=== PATIENT | female | born 1970 | race Caucasian/White ===

== ENCOUNTER 2018-12-22 06:46 | Day surgery (SDC) | payer BC ==
[~2018-12-22 06:46] MED LIST: Lidocaine 1% with EPINEPHrine 1:100,000 50 ML MDV ONE; Sodium Chloride 0.9% 10 ML ONE; Sodium Tetradecyl Sulfate 1% 20 MG/2 ML SDV ONE
[2018-12-22] MEDS ORDERED: Sodium Chloride 0.9% 1,000 ML IV SCH (07:00)
[2018-12-22] MEDS ORDERED: fentaNYL 100 MCG/2 ML SDV ONE (07:23)
[2018-12-22] MEDS ORDERED: Propofol 200 MG/20 ML SDV ONE ×3 (07:24→08:24)
[2018-12-22] MEDS ORDERED: Midazolam 1 MG/ML 2 ML SDV ONE (07:24)
[2018-12-22] MEDS ORDERED: Lidocaine 1% w/EPINEPHrine 50 ML, Sodium Bicarbonate 5 MEQ in Sodium Chloride 0.9% 950 ML INJECT ONE ×2 (07:30→07:45)
[2018-12-22] MEDS ORDERED: Sodium Chloride 0.9% 10 ML SDV FLUSH ONE (08:20)
--- NOTE | 2018-12-22 10:49 | OR ---
DATE OF PROCEDURE: 12/22/2018 SURGEON: Oneal Rodríguez MD PROCEDURES: 1. Radiofrequency ablation of left greater saphenous vein. 2. Sclerotherapy, left leg, multiple. 3. Compression wrap, left leg ([id number]). COMPLICATIONS: None. LITHOPLATE MAKER: None. ANESTHESIA: MAC. PREOPERATIVE DIAGNOSIS: Venous/varicose vein insufficiency with inflammation and pain. POSTOPERATIVE DIAGNOSIS: Venous/varicose vein insufficiency with inflammation and pain. RISKS: Risks, benefits, alternatives, and limitations including, but not limited to infection, bleeding, and DVT formation were explained to the patient and wished to proceed. PROCEDURE IN DETAIL: The patient was placed in supine position. The original objective was to ablate the right greater saphenous, right lesser. Unfortunately, due to tortuosity, an attempt to then advance with wire was unable to be successful. Therefore, these were not ablated here. The left GSV was accessed at the level of the ankle. This was accessed using a 21-gauge needle and then exchanged for a 35,000th wire, then exchanged for a 7-Mauritian sheath. The RFA probe was able to be advanced to upper thigh. Tumescent fluid was injected in a 1-cm jacket around this and verified a second and a third time. Sheath and device were then removed after deploying x2 proximally and distally, and x1 in all other segments. Direct pressure was held for 10 minutes. Dermabond was applied. Sclerotherapy was then performed of the left leg. There were 6 on the left. This was always drawn back to ensure intravascular injection only and no more than 2 mL was injected in one location. Once this was completed, two-layer two-stage compression wrapping was then performed in a distal to proximal 20 mm grade using a [id number] pattern. The patient tolerated the procedure well. Oenal Rodríguez MD /[id number]
== END 2018-12-22 10:35 | disposition home or self-care (01) ==
LOC: JP.SDS 06:46
PROVIDERS: ATTEND Surgery
DX: I83.12 Varicose veins of left lower extremity with inflammation (principal); I83.812 Varicose veins of left lower extremity with pain; E03.9 Hypothyroidism, unspecified; E05.90 Thyrotoxicosis, unspecified without thyrotoxic crisis or storm
CPT/HCPCS: 36471; 36475; J1642; J2250; J2704; J3010; J7030; J3490

== ENCOUNTER 2019-10-13 09:57 | Day surgery (SDC) | payer BC ==
[~2019-10-13 09:57] MED LIST changes: +Dexamethasone 4 MG/ML SDV ONE; +Glycopyrrolate 0.2 MG/ML 5 ML MDV ONE; -Lidocaine 1% with EPINEPHrine 1:100,000 50 ML MDV ONE; +Neostigmine Methylsulfate 1 MG/ML 5 ML Syringe ONE; +Ondansetron 4 MG/2 ML SDV ONE; +Propofol 200 MG/20 ML SDV ONE; +Rocuronium 50 MG/5 ML Vial ONE; -Sodium Chloride 0.9% 10 ML ONE; -Sodium Tetradecyl Sulfate 1% 20 MG/2 ML SDV ONE; +Succinylcholine 200 MG/10 ML MDV ONE; +fentaNYL 250 MCG/5 ML SDV ONE
[2019-10-13] MEDS ORDERED: Sodium Chloride 0.9% 1,000 ML IV SCH (10:30)
[2019-10-13] MEDS ORDERED: metroNIDAZOLE/Normal Saline 500 MG in Premix Bag 1 BAG IV ONE (10:30)
[2019-10-13] MEDS ORDERED: ceFAZolin 2 GM in Premix Bag 1 BAG IV ONE (10:30)
[2019-10-13] MEDS: Bupivacaine 0.5% 50 ML MDV ONE ×2 (10:38→12:38)
[2019-10-13] MEDS: Lidocaine 1% with EPINEPHrine 1:100,000 50 ML MDV ONE ×2 (10:39→12:38)
[2019-10-13] MEDS ORDERED: Lactated Ringers 1,000 ML ONE (12:31)
[2019-10-13] MEDS ORDERED: Ketorolac 60 MG/2 ML SDV ONE (12:34)
[2019-10-13] MEDS ORDERED: Morphine 2 MG/ML Syringe IVPUSH PRN (13:53)
[2019-10-13] MEDS ORDERED: Scopolamine 1.5 MG Transdermal Patch TRDERM ONE (14:00)
[2019-10-13] MEDS ORDERED: Acetaminophen/HYDROcodone 325-5 MG Tab PO PRN (14:30)
--- NOTE | 2019-10-16 08:58 | OR ---
DATE OF PROCEDURE: 10/13/2019 SURGEON: Oneal Rodríguez MD PROCEDURE: Transversus abdominis plane block, bilaterally. COMPLICATION: None. OIL BOILER: None. RISKS: Risks, benefits, alternatives, and limitations including, but not limited to infection, bleeding, and injury to abdominal structures were all explained to the patient, who wished to proceed. PROCEDURE IN DETAIL: The patient was placed in supine position. The right transversus plane was identified first. 80% of the solution was injected directly into the transversus plane. The left side was then approached in a same manner, same fashion, same technique all under 13 megahertz ultrasound-guided injection. The only difference was different needle and syringe were used on the second side. The patient tolerated the procedure well. Oneal Rodríguez MD /[id number]
--- NOTE | 2019-10-16 09:25 | OR ---
DATE OF PROCEDURE: 10/13/2019 SURGEON: Oneal Rodríguez MD PROCEDURES: 1. Component separation surgery, Pfannenstiel hernia (33765). 2. Repair of incisional hernia repair with mesh ([id number]), recurrent, incarcerated. 3. Repair of recurrent incisional hernia, reducible (56787), hernia #2. INDICATION: A pleasant 49-year-old female who had multiple recurrent incisional hernias noted on the abdomen. PREOPERATIVE DIAGNOSES: 1. Incarcerated non-strangulated hernia. 2. Recurrent incarcerated hernia #2. POSTOPERATIVE DIAGNOSES: 1. Incarcerated non-strangulated hernia. 2. Recurrent incarcerated hernia #2. COMPLICATION: None. ASSOCIATE ARTISTIC DIRECTOR: None. ANESTHESIA: General/local. RISKS: Risks, benefits, alternatives, and limitations including, but not limited to infection, bleeding, seroma, hematoma, requirement for reoperation, hernia failure, injury to abdominal structures such as bowel or bladder, sepsis, and other risks not listed here were explained to the patient, and they wished to proceed. PROCEDURE IN DETAIL: The patient was placed in supine position. The previous Pfannenstiel incision was opened with a 15 blade carefully and was mobilized proximally, the entire length, which was around 10 cm. Using electrocautery, the hernia sac was readily identified and was mobilized freely. The hernia sac was entered sharply, and it was noted to contain small bowel incarcerated within this. There was no evidence of strangulation. The hernia sac was then mobilized and subsequently removed. This was not sent to pathology. It became evident the patient actually had a second hernia in close proximity to this. Therefore, at this point was the time when the entire incision was opened completely. Both were noted to be incarcerated, both recurrent, and the more lateral of the two had already been repaired previously. At this point, the more lateral one will be repaired with an anterior component separation and the second one will be repaired in conjunction with this with a second piece of mesh. Mobilization of the sacs continued using electrocautery. Of note, at no time during the procedure would the bowel be interacted with, as far as cautery injury or any other abnormality, and this was deflected inferiorly. The anterior components of the fascia were then released around the hernia edges and further mobilized with respect to the rectus sheath. Perforating vessels and nerves were identified during this procedure and not interacted with in any way. This continued to be mobilized until there was a tension-free ability to close the hernia properly. This was then closed with #1 Prolene suture in an interrupted fashion. Mesh was then used to close the second hernia due to the inability to completely make this a tensionless repair without this aspect due to the second hernia. The medial hernia would be described as approximately 5 cm and the lateral hernia was approximately 6 cm. Of note, this is with respect to a Pfannenstiel incision, not a midline incision. Once the posterior component was closed and , the mesh was introduced into the second hernia. This would be sutured with Prolene in a horizontal mattress type approach, penetrating the fascial muscular layer through the mesh and then back. This was all performed extracorporeally to prevent inadvertent injury to the small bowel. This was then placed in the abdomen and sutured. Of note, this mesh was hand sutured approximately every 1 to 1.5 cm. Using tacking device, as this was a multi-material mesh, the anterior component of the mesh was then tacked with multiple tacking sutures. To continue with component separation, a Vicryl type suture would then be tacked over both the repair and the subsequent mesh. This was tacked into the muscular layer approximately every 1 to 2 cm. The entire thing was completely irrigated. The skin and subcutaneous tissues were then closed in 3 layers using #1 and 3-0 Vicryl suture. Friendship were then applied to close the skin. The patient tolerated the procedure well. Oneal Rodríguez MD /[id number]
== END 2019-10-13 15:29 | disposition home or self-care (01) ==
LOC: JP.SDS 09:57
PROVIDERS: ATTEND Surgery
DX: K43.0 Incisional hernia with obstruction, without gangrene (principal); K21.9 Gastro-esophageal reflux disease without esophagitis; E66.9 Obesity, unspecified; E03.9 Hypothyroidism, unspecified; E66.01 Morbid (severe) obesity due to excess calories; E05.90 Thyrotoxicosis, unspecified without thyrotoxic crisis or storm; Z68.41 Body mass index [BMI] 40.0-44.9, adult; Z79.890 Hormone replacement therapy; Z79.899 Other long term (current) drug therapy
CPT/HCPCS: 15734; 49565; 49566; 49568; 81025; A9270; C1713; C1781; J0171; J0690; J1100; J1885; J2270; J2405; J2704; J2710; J2795; J3010; J3490; J7030; J7050; J7120; J0330

== ENCOUNTER 2019-10-13 20:58 | Emergency (ER) | payer BC ==
--- NOTE | 2019-10-13 22:04 | EDM.PDOC ---
ED HPI GENERAL MEDICAL PROBLEM - General Chief Complaint: Wound Recheck Stated Complaint: BLEEDING FROM HERNIA SURGERY THIS AM Time Seen by Provider: 10/13/19 21:00 Source of Information: Reports: Patient History Limitations: Reports: No Limitations - History of Present Illness INITIAL COMMENTS - FREE TEXT/NARRATIVE: Incisional hernia repair today by Dr Rodríguez, now having bloody drainage on bandage. No other symptoms. Onset: Today Duration: Hour(s): Location: Reports: Abdomen incisional Pain Score (Numeric/FACES): 3 - Related Data Allergies Allergy/AdvReac Type Severity Reaction Status Date / Time No Known Allergies Allergy Verified 10/13/19 21:21 Home Meds: Home Meds Calcium Carbonate [Calcium] 2,000 mg PO DAILY 07/05/17 [History] Cholecalciferol (Vitamin D3) [Vitamin D3] 2,000 units PO DAILY 07/05/17 [History ] Cyanocobalamin/FA/Pyridoxine [B Complex-Folic Acid] 1 tab PO DAILY 07/05/17 [ History] Cyanocobalamin/Folic Acid [Vitamin H16-Stdxc Acid] 1 tab PO DAILY 07/05/17 [ History] Ferrous Fumarate 324 mg PO DAILY 07/05/17 [History] Levothyroxine 200 mcg PO DAILY 07/05/17 [History] Multivitamin [Multivitamins] 1 cap PO BID 07/05/17 [History] Omeprazole 40 mg PO BEDTIME PRN 03/14/18 [History] Aspirin 81 mg PO DAILY 10/13/19 [History] Hydrocodone/Acetaminophen [Hydrocodon-Acetaminophen 5-325] 1 each PO TID PRN 09/26 [History] Past Medical History HEENT History: Reports: Impaired Vision Other HEENT History: wears glasses Cardiovascular History: Reports: Arrhythmia Gastrointestinal History: Reports: Cholelithiasis Genitourinary History: Reports: None CARD LACER JACQUARD History: Reports: , Spontaneous Musculoskeletal History: Reports: Osteoarthritis, Other (See Below) Other Musculoskeletal History: L shoulder pain Endocrine/Metabolic History: Reports: Hypothyroidism, Obesity/BMI 30+ Hematologic History: Reports: B12 Deficiency, Iron Deficiency - Past Surgical History HEENT Surgical History: Reports: Tonsillectomy, Other (See Below) Other HEENT Surgeries/Procedures: Uvula removed Cardiovascular Surgical History: Reports: None GI Surgical History: Reports: Bariatric Procedure, Cholecystectomy, EGD, Hernia , Abdominal Female Surgical History: Reports: Breast Biopsy, Section Endocrine Surgical History: Reports: Thyroidectomy Musculoskeletal Surgical History: Reports: None Dermatological Surgical History: Reports: None Social & Family History - Family History Family Medical History: Noncontributory Cardiac: Reports: Bypass, CAD Psychiatric: Reports: PTSD Endocrine/Metabolic: Reports: Diabetes, type II, Hypothyroidism Oncologic: Reports: Other (See Below) Other Oncologic Family History: AML - Tobacco Use Smoking Status *Q: Never Smoker - Caffeine Use Caffeine Use: Reports: Coffee - Recreational Drug Use Recreational Drug Use: No ED ROS GENERAL - Review of Systems Review Of Systems: See Below Constitutional: Reports: No Symptoms GI/Abdominal: Reports: Other (dark bloody drainage from incision) ED EXAM, SKIN/RASH Exam: See Below Text/Narrative:: Dark blood on bandage. Small amount of seepage from left side of wound. No active bleeding. Respiratory/Chest: No Respiratory Distress Cardiovascular: Normal Peripheral Pulses GI/Abdominal: Soft, Non-Tender Skin: Warm, Dry, Normal Color Location, Skin: Abdomen Course - Vital Signs Last Recorded V/S: Last Vital Signs Temp 36.7 C 10/13/19 21:24 Pulse 58 L 10/13/19 21:24 Resp 16 10/13/19 21:24 BP 115/49 L 10/13/19 21:24 Pulse Ox 97 10/13/19 21:24 Departure - Departure Time of Disposition: 22:05 Disposition: Refer to Observation Condition: Good Clinical Impression: Drainage from wound - Discharge Information *PRESCRIPTION DRUG MONITORING PROGRAM REVIEWED*: No Instructions: Incision and Drainage, Care After, How to Change Your Wound Dressing, [id number] Referrals: Evelyne Galvin CNM [Primary Care Provider] - Forms: ED Department Discharge Additional Instructions: Change the dressing as needed. Return to the ER as needed for problems or concerns. Sepsis Event Note - Evaluation Sepsis Screening Result: No Definite Risk - Focused Exam Vital Signs: Vital Signs Temp Pulse Resp BP Pulse Ox 10/13/19 21:24 36.7 C 58 L 16 115/49 L 97 10/13/19 21:13 36.7 C 58 L 16 115/49 L 97 Date Exam was Performed: 10/13/19 Time Exam was Performed: 22:06
== END 2019-10-13 22:12 | disposition home or self-care (01) ==
LOC: JP.ED 20:58
DX: K91.89 Other postprocedural complications and disorders of digestive system (principal); M19.90 Unspecified osteoarthritis, unspecified site; E03.9 Hypothyroidism, unspecified; E66.9 Obesity, unspecified; Z68.41 Body mass index [BMI] 40.0-44.9, adult; Z79.899 Other long term (current) drug therapy; Z79.82 Long term (current) use of aspirin
CPT/HCPCS: 99283

== ENCOUNTER 2024-01-02 20:28 | Emergency (ER) | payer MEDICAID ==
[2024-01-02 20:54] LABS: HEMATOCRIT 37.1 % (34.3-46.0); HEMOGLOBIN 12.5 g/dL (11.2-15.5); MEAN CORPUSCULAR HEMOGLOBIN 26.8 pg (31.6-35.5); MEAN CORPUSCULAR HGB CONC 33.7 g/dL (31.6-35.5); MEAN CORPUSCULAR VOLUME 79.4 fL (81.4-99.0); PLATELET COUNT,PLT 231 K/uL (130-375); RED BLOOD CELL COUNT 4.67 M/uL (3.77-5.24); WHITE BLOOD CELL COUNT,WBC 3.6 K/uL (3.2-11.0)
[2024-01-02 21:15] LABS: ALBUMIN 3.2 g/dL (3.4-5.0); BILIRUBIN DIRECT 0.1 mg/dL (0.0-0.2); BILIRUBIN INDIRECT 0.3; BILIRUBIN TOTAL 0.4 mg/dL (0.2-1.0); C-REACTIVE PROTEIN 3.32 mg/dL (<0.50); CALCIUM 7.9 mg/dL (8.5-10.1); CREATININE 0.7 mg/dL (0.6-1.0); EST CRCL DRUG DOSING (CG) 81.71 mL/min; POTASSIUM,K 3.7 mmol/L (3.6-5.2); PROTEIN TOTAL,TP 6.3 g/dL (6.4-8.2)
[2024-01-02 21:17] LABS: ANION GAP 12.7 mmol/L (5.0-14.0)
[2024-01-02 21:28] LABS: BAND ABSOLUTE MAN 0.04 K/uL; BAND PERCENT MAN 1 % (5-11); EOSINOPHILS ABSOLUTE MAN 0.18 K/uL (0.00-0.40); EOSINOPHILS PERCENT MAN 5 % (2-4); LYMPHOCYTES ABSOLUTE MAN 1.15 K/uL (0.8-3.3); LYMPHOCYTES PERCENT MAN 32 % (24-44); MONOCYTES ABSOLUTE MAN 0.22 K/uL (0.20-0.90); MONOCYTES PERCENT MAN 6 % (2-6); NEUTROPHILS ABSOLUTE MAN 2.02 K/uL (1.0-7.6); SEG NEUTROPHILS PERCENT MAN 56 % (36-66)
[2024-01-02 21:29] LABS: ATYPICAL LYMPHOCYTES FEW; HYPOCHROMASIA FEW
[2024-01-02 21:45] LABS: LYME AB IgG Positive (Negative); LYME AB IgM Equivocal (Negative)
[2024-01-05 13:00] LABS: B. BURGDORFERI IGG IMMUNOBLOT Negative (Negative); B. BURGDORFERI IGM IMMUNOBLOT Negative (Negative)
[2024-01-05 14:45] LABS: ANAPLASMA PHAGOCYTOPHILUM PCR Not Detected; BABESIA MICROTI BY PCR Not Detected; BABESIA SPECIES BY PCR Not Detected; EHRLICHIA CHAFFEENSIS BY PCR Not Detected; EHRLICHIA EWINGII/CANIS BY PCR Not Detected; EHRLICHIA MURIS-LIKE BY PCR Not Detected
== END 2024-01-02 22:25 | disposition home or self-care (01) ==
LOC: JP.ED 20:28
DX: A69.20 Lyme disease, unspecified (principal); E66.9 Obesity, unspecified; E03.9 Hypothyroidism, unspecified; Z79.899 Other long term (current) drug therapy; Z90.49 Acquired absence of other specified parts of digestive tract; Z68.41 Body mass index [BMI] 40.0-44.9, adult
CPT/HCPCS: 36415; 80048; 80076; 83605; 85025; 86140; 86617; 86618; 87468; 87469; 87484; 87798; 99283

== ENCOUNTER 2024-07-13 06:48 | Day surgery (SDC) | payer MEDICAID ==
[2024-07-13] MEDS: Lactated Ringers 1,000 ML IV SCH (07:27)
[2024-07-13] MEDS ORDERED: Propofol 200 MG/20 ML SDV ONE (07:30)
[2024-07-13] MEDS ORDERED: fentaNYL 100 MCG/2 ML SDV ONE (07:31)
[2024-07-13] MEDS ORDERED: Midazolam 1 MG/ML 2 ML SDV ONE (07:31)
[2024-07-13] MEDS: Cyanocobalamin (Vitamin B12) 1,000 MCG/ML SDV IM ONE (07:35)
[2024-07-13] MEDS: MVI, Adult with Vitamin K 10 ML, Thiamine 200 MG, Chromium/Copper/Mang/Selen/Zn 1 ML in... IV ONE (09:00)
== END 2024-07-13 10:50 | disposition home or self-care (01) ==
LOC: JP.SDS 06:48
PROVIDERS: ATTEND Surgery
DX: R13.10 Dysphagia, unspecified (principal); K22.70 Barrett's esophagus without dysplasia; Z98.890 Other specified postprocedural states
CPT/HCPCS: 43239; 43249; C1726; J2250; J2704; J3010; J3411; J3420; J7120; 00731-QZ